=== PATIENT | female | born 1975 | race Caucasian/White ===

== ENCOUNTER 2017-07-31 12:02 | Day surgery (SDC) | payer MEDICAID, OTHER ==
[2017-07-31] MEDS: ONDANSETRON 4 MG INJ IV (13:46)
[2017-07-31] MEDS: morphine 4 MG/ML VIAL IV (13:49)
[2017-07-31 13:56] LABS: ADD MAN DIFF? NO
[2017-07-31 13:57] LABS: WHITE BLOOD COUNT 8.9 10^3/ul (4.8-10.8)
[2017-07-31 13:57] LABS: BASOPHILS % 0.3 % (0.0-2.0); EOSINOPHILS % 0.1 % (0.0-7.0); HEMATOCRIT 34.6 % (37.0-47.0); HEMOGLOBIN 11.4 g/dl (12.0-16.0); LYMPHOCYTES % 11.5 % (15.0-51.0); MEAN CORPUSCULAR HEMOGLOBIN 28.5 pg (29.0-33.0); MEAN CORPUSCULAR HGB CONC 32.9 g/dl (32.0-37.0); MEAN CORPUSCULAR VOLUME 86.5 fl (82.0-101.0); MEAN PLATELET VOLUME 9.8 fl (7.4-10.4); MONOCYTE # 0.1 10^3/ul (0.3-0.9); MONOCYTES % 1.6 % (0.0-11.0); NEUTROPHIL # 7.7 10^3/ul (1.6-7.5); NEUTROPHILS % 86.2 % (39.0-77.0); PLATELET COUNT 311 10^3/UL (140-415); RED CELL DISTRIBUTION WIDTH 12.2 % (11.5-14.5)
[2017-07-31 14:03] LABS: ADD UMIC YES; UR ASCORBIC ACID NEGATIVE (NEGATIVE); UR BILIRUBIN (Dip) NEGATIVE (NEGATIVE); UR BLOOD (Dip) NEGATIVE (NEGATIVE); UR CLARITY CLEAR (CLEAR); UR COLOR YELLOW (YELLOW); UR GLUCOSE (Dip) NEGATIVE (NEGATIVE); UR KETONES (Dip) NEGATIVE (NEGATIVE); UR LEUKOCYTE ESTERASE (Dip) TRACE Leu/ul (NEGATIVE); UR NITRITE (Dip) NEGATIVE (NEGATIVE); UR RBC 2 /HPF (0-5); UR SPECIFIC GRAVITY (Dip) 1.021 (1.003-1.030); UR TOTAL PROTEIN (Dip) NEGATIVE (NEGATIVE); UR UROBILINOGEN (Dip) NEGATIVE (NEGATIVE); UR WBC 4 /HPF (0-5)
[2017-07-31 14:19] LABS: ALANINE AMINOTRANSFERASE 29 IU/L (13-69); ALBUMIN 4.5 g/dl (3.3-4.9); ALBUMIN/GLOBULIN RATIO 1.36; ALKALINE PHOSPHATASE 91 IU/L (42-121); ANION GAP 15 (8-16); ASPARTATE AMINO TRANSFERASE 22 IU/L (15-46); BILIRUBIN,INDIRECT 0.1 mg/dl (0-1.1); BILIRUBIN,TOTAL 0.1 mg/dl (0.2-1.3); BLOOD UREA NITROGEN 15 mg/dl (7-20); CALCIUM 8.8 mg/dl (8.4-10.2); CARBON DIOXIDE 25 mmol/L (21-31); CHLORIDE 105 mmol/L (97-110); CREATININE 0.62 mg/dl (0.44-1.00); GLUCOSE 134 mg/dl (70-220); LIPASE 49 U/L (23-300); POTASSIUM 3.9 mmol/L (3.5-5.1); SODIUM 141 mmol/L (135-144); TOTAL PROTEIN 7.8 g/dl (6.1-8.1)
[2017-07-31] MEDS: KETOROLAC 30 MG INJ IV (15:42)
[2017-07-31] MEDS: SOD CHLORIDE 0.9% 1,000 ML IV (16:36)
[2017-07-31] MEDS ORDERED: BUPIVACAINE 0.25% (MPF) 30 ML INJ (18:12)
[2017-07-31] MEDS ORDERED: MIDAZOLAM 1 MG/ML 2 ML INJ (18:15)
[2017-07-31] MEDS: BUPIVACAINE 0.25% (MPF) 30 ML INJ INJ (19:06)
[2017-07-31] MEDS ORDERED: ROCURONIUM 50 MG INJ (19:20)
[2017-07-31] MEDS ORDERED: PROPOFOL 20 ML (19:20)
[2017-07-31] MEDS ORDERED: ONDANSETRON 4 MG INJ (19:20)
[2017-07-31] MEDS ORDERED: KETOROLAC 30 MG INJ (19:20)
[2017-07-31] MEDS ORDERED: LIDOCAINE 2% (SDV) 5 ML INJ (19:20)
[2017-07-31] MEDS ORDERED: GLYCOPYRROLATE 0.4 MG INJ (19:20)
[2017-07-31] MEDS ORDERED: NEOSTIGMINE 3 MG/3 ML SYRINGE (19:20)
[2017-07-31] MEDS ORDERED: CEFAZOLIN 1 GM INJ (19:25)
== END 2017-07-31 21:25 | disposition home or self-care (01) ==
LOC: FTE 17:56 → SDS 19:41 → FTE 12:02 → SDS 21:25
DX: N83.12 Corpus luteum cyst of left ovary (principal); D18.09 Hemangioma of other sites; N72 Inflammatory disease of cervix uteri; N85.00 Endometrial hyperplasia, unspecified; N83.512 Torsion of left ovary and ovarian pedicle
CPT/HCPCS: 36415; 74176; 76830; 76856; 80053; 81001; 83690; 85025; 88104; 88305; 96374; 96375; 99285-25